=== PATIENT | male | born 1975 | race Caucasian/White ===

== ENCOUNTER 2017-09-18 10:51 | Emergency (ER) | payer SELFPAY ==
[~2017-09-18] VITALS: Ht 175.3 cm; Wt 71.0 kg
[~2017-09-18 10:51] MED LIST: Z.0.UNABLE TO OBTAIN
[2017-09-18 10:56] VITALS: BP 127/72; PULSE 106; RESP 16; TEMP 98.7; O2SAT 97
[2017-09-18 11:22] LABS: BLOOD, URINE NEG (NEG); GLUCOSE,URINE NEG (NEG); KETONE, URINE NEG (NEG); NITRITE,URINE NEG (NEG); PH, URINE 6.5 (5.0-8.5)
[2017-09-18 11:28] LABS: METHOD OF COLLECTION CLEAN CATCH
[2017-09-18 11:29] LABS: COMMENT (UR) CULT NOT INDICATED; CULTURE IF INDICATED CULT NOT INDICATED; RBC, URINE 0-3 /hpf (0-3); SQUAMOUS EPITHELIAL CELL URINE 0-5 /hpf (0-5); URINE COLOR YELLOW (YELLW/STRAW)
[2017-09-18] MEDS ORDERED: LIDOCAINE HCL 1% 50 ML VIAL XX ONE (13:00)
[2017-09-18] MEDS ORDERED: AZITHROMYCIN PWD FOR SUSP 1 GM PACKET PO ONE (13:00)
[2017-09-18 15:10] LABS: AUTOMATED NEUTROPHIL # 8.8 TH/MM3 (1.8-7.7); BASOPHIL # 0.2 TH/MM3 (0-0.2); BASOPHIL % 1.6 % (0.0-2.0); EOSINOPHIL % 0.2 % (0.0-4.0); HEMATOCRIT 39.6 % (39.0-51.0); LYMPH % 9.1 % (9.0-44.0); MEAN CELL VOLUME 91.4 FL (80.0-100.0); MEAN CORPUSCULAR HEMOGLOBIN 31.7 PG (27.0-34.0); MEAN CORPUSCULAR HGB CONC 34.6 % (32.0-36.0); MONO % 8.7 % (0.0-8.0); NEUT % 80.4 % (16.0-70.0); PLATELET COUNT 197 TH/MM3 (150-450); RED BLOOD COUNT 4.33 MIL/MM3 (4.50-5.90); RED CELL DISTRIBUTION WIDTH 12.1 % (11.6-17.2); WHITE BLOOD COUNT 10.9 TH/MM3 (4.0-11.0)
[2017-09-18 15:15] LABS: HEMO FLAGS DIFF FINAL
[2017-09-18] MEDS ORDERED: KETOROLAC TROMETHAMINE 30 MG/ML (IVP) VIAL IV PUSH ONE (15:15)
[2017-09-18 15:19] LABS: CHLORIDE 97 MEQ/L (98-107); POTASSIUM 3.6 MEQ/L (3.5-5.1); SODIUM (NA) 134 MEQ/L (136-145)
[2017-09-18 15:23] LABS: ANION GAP 6 MEQ/L (5-15); BICARBONATE 31.3 MEQ/L (21.0-32.0); BLOOD UREA NITROGEN 11 MG/DL (7-18)
[2017-09-18 15:26] LABS: ALT (GPT) 25 U/L (12-78); AST (GOT) 14 U/L (15-37); GLOMERULAR FILTRATION RATE 87 ML/MIN (>89)
[2017-09-18 15:28] LABS: TOTAL BILIRUBIN ADULT 0.9 MG/DL (0.2-1.0)
[2017-09-18 15:29] LABS: ALKALINE PHOSPHATASE 68 U/L (45-117)
[2017-09-18 15:54] LABS: CHLAMYDIA PCR NOT DETECTED (NOT DETECT); NEISSERIA PCR NOT DETECTED (NOT DETECT)
[2017-09-18] MEDS ORDERED: CIPR-9 PO (16:12)
--- NOTE | 2017-09-18 16:21 | PD ---
HPI . Cellulitis Chief Complaint: Complaint Time Seen by Provider: 12:22 Travel History International Travel<30 days: No Contact w/Intl Traveler<30days: No Traveled to known affect area: No History of Present Illness HPI 41-year-old male patient presents emergency department for evaluation of penile discharge. Urinalysis and GC chlamydia ordered in triage protocol before getting into a medical room. Patient states he has been running fevers intermittently as high as 101. Patient was afebrile in triage. Patient denies any major medical history. Patient states that he has had a couple new sexual partners and does not use protection in the last couple weeks. PFSH Past Medical History Diminished Hearing: No Ulcer: Yes Tetanus Vaccination: Unknown Influenza Vaccination: No ?: Not Past Surgical History Appendectomy: Yes Other Surgery: Yes (endoscopy-ulcers) Social History Alcohol Use: Yes (beer every few days) Tobacco Use: Yes (1 ppd) Substance Use: Yes (HX USE OF COCAINE, MARIJUANA PER PATIENT) Allergies-Medications (Allergen,Severity, Reaction): Coded Allergies: No Known Allergies (Verified Adverse Reaction, Unknown, 09/18/17) Reported Meds & Prescriptions Reported Meds & Active Scripts Active Cipro (Ciprofloxacin HCl) 500 Mg Tab 500 Mg PO BID 7 Days Reported Unable To Obtain Medication History (Miscellaneous Medication) Misc Review of Systems Except as stated in HPI: all other systems reviewed are Neg Physical Exam Narrative GENERAL: Well-nourished, well-developed 41-year-old male patient that appears anxious and distressed. Nontoxic appearing. SKIN: 3 cm x 1 cm area of erythema and purulent drainage noted to the medial ventral aspect of the penis shaft with surrounding with left groin lymphangitis. HEAD: Normocephalic. Atraumatic. EYES: No scleral icterus. No injection or drainage. NECK: Supple, trachea midline. No JVD or lymphadenopathy. CARDIOVASCULAR: Regular rate and rhythm without murmurs, gallops, or rubs. RESPIRATORY: Breath sounds equal bilaterally. No accessory muscle use. GASTROINTESTINAL: Abdomen soft, non-tender, nondistended. MUSCULOSKELETAL: No cyanosis, or edema. BACK: Nontender without obvious deformity. No CVA tenderness. Data Data Last Documented VS Vital Signs Date Time Temp Pulse Resp B/P (MAP) Pulse Ox O2 Delivery O2 Flow Rate FiO2 09/18/17 10:56 98.7 106 16 127/72 (90) 97 Orders Orders Urinalysis - C+S If Indicated (09/18/17 11:07) Gc And Chlamydia Pcr (09/18/17 11:07) Azithromycin Powd Pack (Zithromax Powd P (09/18/17 13:00) Ceftriaxone Inj (Rocephin Inj) (09/18/17 13:00) Lidocaine 1% Inj (50 Ml) (Xylocaine 1% I (09/18/17 13:00) Complete Blood Count With Diff (09/18/17 14:39) Comprehensive Metabolic Panel (09/18/17 14:39) Lactic Acid Sepsis Protocol (09/18/17 14:39) Blood Culture (09/18/17 14:39) Ketorolac Inj (Toradol Inj) (09/18/17 15:15) Wound Culture And Gram Stain (09/18/17 15:20) Mandatory Outpatient Referral (09/18/17 16:21) Ed Discharge Order (09/18/17 16:21) Labs Laboratory Tests Test 09/18/17 11:00 09/18/17 15:02 Urine Collection Type CLEAN CATCH Urine Color YELLOW Urine Turbidity CLEAR Urine pH 6.5 Urine Specific [place] 1.026 Urine Protein TRACE mg/dL Urine Glucose (UA) NEG mg/dL Urine Ketones NEG mg/dL Urine Occult Blood NEG Urine Nitrite NEG Urine Bilirubin NEG Urine Leukocyte Esterase NEG Urine RBC 0-3 /hpf Urine WBC 3-5 /hpf Urine Squamous Epithelial Cells 0-5 /hpf Microscopic Urinalysis Comment CULT NOT INDICATED Urine Collection Time 11:00 Chlamydia trachomatis DNA (PCR) NOT DETECTED Neisseria gonorrhoeae DNA (PCR) NOT DETECTED White Blood Count 10.9 TH/MM3 Red Blood Count 4.33 MIL/MM3 Hemoglobin 13.7 GM/DL Hematocrit 39.6 % Mean Corpuscular Volume 91.4 FL Mean Corpuscular Hemoglobin 31.7 PG Mean Corpuscular Hemoglobin Concent 34.6 % Red Cell Distribution Width 12.1 % Platelet Count 197 TH/MM3 Mean Platelet Volume 7.7 FL Neutrophils (%) (Auto) 80.4 % Lymphocytes (%) (Auto) 9.1 % Monocytes (%) (Auto) 8.7 % Eosinophils (%) (Auto) 0.2 % Basophils (%) (Auto) 1.6 % Neutrophils # (Auto) 8.8 TH/MM3 Lymphocytes # (Auto) 1.0 TH/MM3 Monocytes # (Auto) 0.9 TH/MM3 Eosinophils # (Auto) 0.0 TH/MM3 Basophils # (Auto) 0.2 TH/MM3 CBC Comment DIFF FINAL Differential Comment Blood Urea Nitrogen 11 MG/DL Creatinine 0.96 MG/DL Random Glucose 105 MG/DL Total Protein 7.2 GM/DL Albumin 3.6 GM/DL Calcium Level 8.7 MG/DL Alkaline Phosphatase 68 U/L Aspartate Amino Transf (AST/SGOT) 14 U/L Alanine Aminotransferase (ALT/SGPT) 25 U/L Total Bilirubin 0.9 MG/DL Sodium Level 134 MEQ/L Potassium Level 3.6 MEQ/L Chloride Level 97 MEQ/L Carbon Dioxide Level 31.3 MEQ/L Anion Gap 6 MEQ/L Estimat Glomerular Filtration Rate 87 ML/MIN Lactic Acid Level 0.9 mmol/L [facility] Medical Decision Making Medical Screen Exam Complete: Yes Emergency Medical Condition: Yes Differential Diagnosis Differential diagnosis include urinary tract infection, penile cellulitis, STI, [place] gangrene Narrative Course 41-year-old male patient presents emergency department for evaluation of penile discharge. Patient was protocoled in triage and a UA with GC and Chlamydia ordered due to his complaint. Once patient was appropriately bedded in the physical assessment was performed it became abundantly clear that the penile discharge the patient was referring to was cellulitic in the ventral medial aspect of the penile shaft. The area of cellulitis was approximately 3 similar symptoms 1 cm with purulent drainage. The area was extremely tender to palpation. There was lymphangitis to the left inguinal lymph nodes. There were very tender to palpation. Patient states that he has been having a protective sex with new sex partners for the last couple weeks. The symptoms started approximately 2 weeks ago. He states he has had intermittent fevers. Wound cultures ordered and pending. Blood work obtained. Blood work was unremarkable for any acute abnormality. Dr. Gonzalez, the urologist was called and he recommended discharging the patient with Cipro twice a day 7 days and a mandatory referral follow-up with him in 1-2 weeks. Patient was discharged home with prescription for Cipro and instructions to follow-up with Dr. Dimas for the mandatory referral and to return to the emergency Department with any worsening condition.. Diagnosis Primary Impression: Penile cellulitis Referrals: Jordan Gonzalez MD Patient Instructions: Cellulitis (DC), General Instructions Additional Instructions: Please return to emergency department if your symptoms return or worsen. Follow-up Dr. Gaytan in 1-2 weeks. Follow up with your primary care provider. Take medications as prescribed. Keep wound clean and dry. Med/Other Pt SpecificInfo: Prescription(s) given Scripts Ciprofloxacin (Cipro) 500 Mg Tab 500 MG PO BID for Infection for 7 Days, #14 TAB 0 Refills Prov: Meli Paredes 09/18/17 Disposition: 01 DISCHARGE HOME Condition: Stable Meli Paredes Sep 18, 2017 16:21
--- NOTE | 2017-09-18 19:24 | PD ---
Physical Exam Date Seen by Provider: Sep 18, 2017 Time Seen by Provider: 15:30 Narrative I, Dr. Michelle, have reviewed the advance practice practitioner's documentation and am in agreement, met with the patient face to face, made the diagnosis, and the medical decision making was done by me. *My assessment and Findings: Patient seen and evaluated with nurse practitioner , please see nurse practitioner notes for further details. Patient has penile pain, redness, ulcerated region on his penis with notable lymph nodes on palpation of the left groin. He has obvious cellulitis on the area but it is uncertain whether this is just cellulitis versus STD as well. Laboratory Tests Test 09/18/17 11:00 09/18/17 15:02 Red Blood Count 4.33 MIL/MM3 (4.50-5.90) Neutrophils (%) (Auto) 80.4 % (16.0-70.0) Monocytes (%) (Auto) 8.7 % (0.0-8.0) Neutrophils # (Auto) 8.8 TH/MM3 (1.8-7.7) Aspartate Amino Transf (AST/SGOT) 14 U/L (15-37) Sodium Level 134 MEQ/L (136-145) Chloride Level 97 MEQ/L (98-107) Estimat Glomerular Filtration Rate 87 ML/MIN (>89) Lab work did not indicate significant leukocytosis. GC was done which was negative. Patient has been given IV ceftriaxone and Zithromax initially in the ER. Case was discussed with Dr. Gaytan considering the significance erythema and cellulitis of the penis and he would like the patient to be started on Cipro , can follow-up with him. Return for any worsening in signs of infection, fevers, and as needed. The plan was discussed with the patient he states understanding. Data Data Last Documented VS Vital Signs Date Time Temp Pulse Resp B/P (MAP) Pulse Ox O2 Delivery O2 Flow Rate FiO2 09/18/17 10:56 98.7 106 16 127/72 (90) 97 Orders Orders Urinalysis - C+S If Indicated (09/18/17 11:07) Gc And Chlamydia Pcr (09/18/17 11:07) Azithromycin Powd Pack (Zithromax Powd P (09/18/17 13:00) Ceftriaxone Inj (Rocephin Inj) (09/18/17 13:00) Lidocaine 1% Inj (50 Ml) (Xylocaine 1% I (09/18/17 13:00) Complete Blood Count With Diff (09/18/17 14:39) Comprehensive Metabolic Panel (09/18/17 14:39) Lactic Acid Sepsis Protocol (09/18/17 14:39) Blood Culture (09/18/17 14:39) Ketorolac Inj (Toradol Inj) (09/18/17 15:15) Wound Culture And Gram Stain (09/18/17 15:20) Mandatory Outpatient Referral (09/18/17 16:21) Ed Discharge Order (09/18/17 16:21) Labs Laboratory Tests Test 09/18/17 11:00 09/18/17 15:02 Urine Collection Type CLEAN CATCH Urine Color YELLOW Urine Turbidity CLEAR Urine pH 6.5 Urine Specific [place] 1.026 Urine Protein TRACE mg/dL Urine Glucose (UA) NEG mg/dL Urine Ketones NEG mg/dL Urine Occult Blood NEG Urine Nitrite NEG Urine Bilirubin NEG Urine Leukocyte Esterase NEG Urine RBC 0-3 /hpf Urine WBC 3-5 /hpf Urine Squamous Epithelial Cells 0-5 /hpf Microscopic Urinalysis Comment CULT NOT INDICATED Urine Collection Time 11:00 Chlamydia trachomatis DNA (PCR) NOT DETECTED Neisseria gonorrhoeae DNA (PCR) NOT DETECTED White Blood Count 10.9 TH/MM3 Red Blood Count 4.33 MIL/MM3 Hemoglobin 13.7 GM/DL Hematocrit 39.6 % Mean Corpuscular Volume 91.4 FL Mean Corpuscular Hemoglobin 31.7 PG Mean Corpuscular Hemoglobin Concent 34.6 % Red Cell Distribution Width 12.1 % Platelet Count 197 TH/MM3 Mean Platelet Volume 7.7 FL Neutrophils (%) (Auto) 80.4 % Lymphocytes (%) (Auto) 9.1 % Monocytes (%) (Auto) 8.7 % Eosinophils (%) (Auto) 0.2 % Basophils (%) (Auto) 1.6 % Neutrophils # (Auto) 8.8 TH/MM3 Lymphocytes # (Auto) 1.0 TH/MM3 Monocytes # (Auto) 0.9 TH/MM3 Eosinophils # (Auto) 0.0 TH/MM3 Basophils # (Auto) 0.2 TH/MM3 CBC Comment DIFF FINAL Differential Comment Blood Urea Nitrogen 11 MG/DL Creatinine 0.96 MG/DL Random Glucose 105 MG/DL Total Protein 7.2 GM/DL Albumin 3.6 GM/DL Calcium Level 8.7 MG/DL Alkaline Phosphatase 68 U/L Aspartate Amino Transf (AST/SGOT) 14 U/L Alanine Aminotransferase (ALT/SGPT) 25 U/L Total Bilirubin 0.9 MG/DL Sodium Level 134 MEQ/L Potassium Level 3.6 MEQ/L Chloride Level 97 MEQ/L Carbon Dioxide Level 31.3 MEQ/L Anion Gap 6 MEQ/L Estimat Glomerular Filtration Rate 87 ML/MIN Lactic Acid Level 0.9 mmol/L [facility] Medical Record Reviewed: Yes Supervised Visit with PETAR: Yes Diagnosis Primary Impression: Penile cellulitis Referrals: Jordan Gonzalez MD Patient Instructions: General Instructions, Cellulitis (DC) Departure Forms: Tests/Procedures Additional Instruction: Please return to emergency department if your symptoms return or worsen. Follow-up Dr. Gaytan in 1-2 weeks. Follow up with your primary care provider. Take medications as prescribed. Keep wound clean and dry. Med/Other Pt SpecificInfo: Prescription(s) given Scripts Ciprofloxacin (Cipro) 500 Mg Tab 500 MG PO BID for Infection for 7 Days, #14 TAB 0 Refills Prov: Meli Paredes Qing MARI 09/18/17 Disposition: 01 DISCHARGE HOME Condition: Stable Dorian Michelle MD Sep 18, 2017 19:24
== END 2017-09-18 16:44 | disposition home or self-care (01) ==
LOC: PHED 10:51 → PHEFT 16:44
DX: N48.22 Cellulitis of corpus cavernosum and penis (principal); B95.61 Methicillin susceptible Staphylococcus aureus infection as the cause of diseases classified elsewhere; B96.5 Pseudomonas (aeruginosa) (mallei) (pseudomallei) as the cause of diseases classified elsewhere; F17.210 Nicotine dependence, cigarettes, uncomplicated; F14.90 Cocaine use, unspecified, uncomplicated; F12.90 Cannabis use, unspecified, uncomplicated
CPT/HCPCS: 80053; 81001; 83605; 85025; 86403; 87040; 87070; 87186; 87205; 87491; 87591; 96372; 96374; 99284; J0696; J1885

== ENCOUNTER 2017-11-30 19:18 | Emergency (ER) | payer SELFPAY | END 2017-11-30 20:02 | disposition home or self-care (01) | LOC: PHED 19:18 | DX: L03.811 Cellulitis of head [any part, except face] (principal); F17.210 Nicotine dependence, cigarettes, uncomplicated | CPT/HCPCS: 99283 ==